=== PATIENT | male | born 1945 | race Caucasian/White ===

== ENCOUNTER → 2016-11-07 | Outpatient (CLI) | payer MEDICARE ==
[~2016-11-07] MED LIST: FURO1TAB60 PO
--- NOTE | 2016-11-08 16:43 | EKG ---
Date Performed: 11/07/2016 Time Performed: 14:47:26 PTAGE: 71 years EKG: Sinus rhythm with PVC(s). Borderline ECG NO PREVIOUS TRACING DOCTOR: Peter Crews Interpretating Date/Time 11/08/2016 16:41:24
== END ==
LOC: HCAV 14:38
DX: I10 Essential (primary) hypertension (principal)
CPT/HCPCS: 93005

== ENCOUNTER 2017-02-18 06:03 | Day surgery (SDC) | payer MEDICARE ==
[~2017-02-18] VITALS: Ht 188 cm; Wt 122.0 kg
[2017-02-18] MEDS ORDERED: FURO1TAB60 PO (07:09)
[2017-02-18 07:10] VITALS: BP 141/81; PULSE 64; RESP 16; O2SAT 97
[2017-02-18 07:24] LABS: AUTOMATED NEUTROPHIL # 3.3 TH/MM3 (1.8-7.7); BASOPHIL % 0.3 % (0.0-2.0); EOSINOPHIL # 0.1 TH/MM3 (0-0.4); EOSINOPHIL % 2.1 % (0.0-4.0); HEMO FLAGS DIFF FINAL; LYMPH % 28.8 % (9.0-44.0); LYMPHOCYTE # 1.6 TH/MM3 (1.0-4.8); MEAN CELL VOLUME 88.1 FL (80.0-100.0); MEAN CORPUSCULAR HEMOGLOBIN 30.5 PG (27.0-34.0); MEAN CORPUSCULAR HGB CONC 34.6 % (32.0-36.0); MONO % 9.3 % (0.0-8.0); NEUT % 59.5 % (16.0-70.0); PLATELET COUNT 265 TH/MM3 (150-450); RED BLOOD COUNT 4.43 MIL/MM3 (4.50-5.90); RED CELL DISTRIBUTION WIDTH 14.1 % (11.6-17.2); WHITE BLOOD COUNT 5.5 TH/MM3 (4.0-11.0)
[2017-02-18 07:31] LABS: APTT (PATIENT) 25.8 SEC (24.3-30.1); PROTHROMBIN TIME - PATIENT 10.9 SEC (9.8-11.6)
[2017-02-18 07:36] LABS: POTASSIUM 3.9 MEQ/L (3.5-5.1)
[2017-02-18] MEDS ORDERED: HEPARIN-NS/PF INJ 500 ML ONE (08:37)
[2017-02-18] MEDS ORDERED: MIDAZOLAM HCL 2 MG/2 ML VIAL ONE ×2 (08:37→08:55)
[2017-02-18] MEDS ORDERED: MISC INFORMATION XX ONE (09:30)
--- NOTE | 2017-02-18 09:38 | CATHPROC ---
[place] HIS Report Study Information Study Number Admission Scheduled Start Study Start [id number] 02/18/2017 02/18/2017 Feb 18 2017 8:43AM Study Type [facility] Left Heart Cath Cardiac Catheterization Referring Institution Admit Source Facility Department 1 Other [facility] - Canvassing Manager Physician and Clinical Staff Initial Wing Bianca Woo Whizzer Hand Padmini Wilks RN Other Boris RN, Raul Recorder Madiha Bedolla,RT(R) Ji Deng RCIS(BS) Procedures Performed Procedure Location (Site) Vessel Name Coronary Angiograms LCA Left Coronary Coronary Angiograms RCA Right Coronary L Heart Cath Wire insertion Fem Art (right) Femoral Art Equipment Time Photoengraving Etcher Apprentice Description Size Mfg Part Number Used/Scraped TRANSDUCER, TRUWAVE 08:56 DE LEON MAI * [id number] Used W/Range Fuels INTRODUCER SET, [id number]- 08:51 Joinity INC. FR 5 Used MICROPUNCTURE, STIFFENED SC-NT-U-SST 09:23 DAI/ST. ANDRES MEDICAL ANGIOSEAL, FR6 VIP FR 6 [id number] Used 08:56 MEDLINE INDUSTRIES PACK, CCL CUSTOM * [id number] Used 08:56 Volusion PACER PEN, SKIN DUAL W/ RULER * [id number] Used 08:56 GodTube MEDICAL WIRE, 3MMJ .035 180CM 180CM [id number] Used 08:56 NAMSignal Data MANIFOLD, 4 PORT * [id number] Used 08:56 NYCOMED OMNIPAQUE, 350 MG, 100ML 100ML [id number] Used 08:56 [employer] MEDICAL BLANKET,WARM AIR CCL * [id number] Used 08:56 TERUMO MEDICAL SHEATH, FR5 TERUMO (10CM) FR 5 [id number] Used 08:51 TERUMO MEDICAL SHEATH, FR5 TERUMO (10CM) FR 5 [id number] Used Equipment Model, Serial, Lot Number and Expiration Data Description Model Number Serial Number Lot Number Expiration Date ANGIOSEAL, FR6 VIP [id number] 10-12-2017 INTRODUCER SET, [id number] 01-04-2020 MICROPUNCTURE, STIFFENED History: Current Medications Medication Dosage/Unit Route Frequency Last Date/Time Taken LASIX K-Dur History: Allergies Allergy Reaction No Known Allergies History: Risk Factors Family History of Hypertension Dyslipidemia Previous [place] Previous Heart Failure Premature CAD Yes No No No No Prior Valve Prior PCI Prior CABG Surgery No No No Cerebrovascular Peripheral Artery Chronic Lung On Dialysis Diabetes Disease Disease Disease No No No No No History: Risk Factors Selection Items Current Smoker History: Symptoms/Diagnosis Selection Items SOB History: Stress Tests Stress or Imaging Studies Performed No History: Other Disease Selection Items HTN History: Other Current Smoker Method Packs a Day Years Used Pack Years Yes Cigarettes 1 6 6 Labs Hgb (g/dl) Hct (%) RBC (MIL/MM3) WBC (l/cumm) Platelets (thousands) 12.00-18.00 37.00-55.00 4.80-6.20 4.80-10.80 140.00-450.00 13.5 39 4.4 5.5 265 Glucose (mg/dl) BUN (mg/dl) Creatinine (mg/dl) BUN:Creatinine (1:x) 60.00-110.00 8.00-20.00 0.10-9.00 10.00-20.00 105 20 1.0 20 Na (meq/l) K (meq/l) Cl (meq/l) CO2 (mmol/L) Ca (mg/dl) 138.00-146.00 3.80-5.10 101.00-111.00 23.00-30.00 9.00-10.50 143 3.9 108 30 8.4 PT (sec) PTT (sec) INR (PTT:PT) 9.40-11.40 25.10-32.70 0.50-2.00 10.9 25.8 1 CPK-MB (ng/ML) 0.00-7.00 Not Drawn Medication Medication Total Dose (Bolus/Oral) Medication Total Dosage/Unit 1% XYLOCAINE 20 mL FENTANYL 50 mcg VERSED 2 mg Medications (Bolus/Oral) Medication Time Given Dosage/Unit Administered By Reason FENTANYL 02/18/2017 8:56:27 AM 50 mcg AcecheBridgetPadmini 50 mcg FENTANYL given in lab by Padmini Wilks, RN via Peripheral IV. VERSED 02/18/2017 8:58:53 AM 2 mg Mrache, Padmini 2 mg VERSED given in lab by Padmini Wilks, RN via Peripheral IV. 1% XYLOCAINE 02/18/2017 9:00:31 AM 20 mL Wing Bianca Ramirez 20 mL 1% XYLOCAINE given in lab by Wing Bianca Ramirez in Right Groin via Subcutaneous. Medication (Drip) Medication Time Given Dosage/Unit Concentration/Unit Diluent (ml) Solution IV Solutions 02/18/2017 8:50:38 AM 0 mL (IV) NaCl .9 Patient arrived on IV Solutions in Left Antecubital via Peripheral IV. Pump/Drip Flow = 20 ml/hr usin g NaCl .9. Initial Case Assessment Cardiovascular HR Rhythm NIBP Chest Pain 62 reg-pvc 159/92 0 Edema Present Skin color Skin None Normal Warm Circulatory - Right Pulses Dorsalis Pedis Femoral d 3 Scale (0,1,2,3,4,d) Circulatory - Left Pulses Dorsalis Pedis Femoral d 3 Scale (0,1,2,3,4,d) Circulatory - Lower Extremities Color Lower Right Color Lower Left Normal Normal Neurological State Oriented to time-place- Alert Moves all extremities person Respiration - General Respiration Rate SpO2 (%) (B/min) 11 99 Chronological Log Time Study Chronological Log 8:43:13 Patient arrived via Bed. 8:43:14 Patient Name, D.O.B, / Armband Verified By R.N. 8:43:15 Consent signed by the physician and the patient and verified by the Canvassing Manager staff. 8:43:16 Pre-op and post- op instructions given; patient acknowledges understanding of instructions. 8:43:17 Verbal Stimulation=2 Physical Stimulation=2 Airway=2 Respiration=2 TOTAL=8. (0=absent, 1=madison ited, 2=present) 8:43:19 Allens test performed on the right radial and ulnar artery. 8:43:20 Patient has been NPO for Less than 6Hrs. 8:43:21 Skin Breakdown-none 8:43:34 Patient Warmer Placed on the Table. Vitals capture started with the following parameters, Patient=Adult, Interval=15 min, Initial Pr kbcfmh=997 mmHg, 8:45:30 Deflation Rate=5 mmHg 8:46:11 HR=61 bpm, ODJK=096/95 mmhg, SpO2=99.0 %, Resp=11 B/min, Pain=0, Isaak=10, Alexis=2 8:49:03 Reference ECG taken 8:50:28 A # 20 IV was noted in the Antecubital (left). Grade = 0 8:50:38 Patient arrived on IV Solutions in Left Antecubital via Peripheral IV. Pump/Drip Flow = 20 m l/hr using NaCl .9. 8:51:11 History and physical on the chart or being dictated. 8:51:12 HR=59 bpm, LQXT=908/92 mmhg, SpO2=99.0 %, Resp=11 B/min, Pain=0, Isaak=10, Alexis=2 Assessment: Initial Case, HR=62 BPM, Rhythm=reg-pvc, YKXV=316/92 mmhg, Chest Pain=0, Edema=None, Color=Normal, Skin = Warm Right Pulses: Ean Ped=d, Femoral=3 Left Pulses: Ean Ped=d, Femoral=3 8:51:16 Lower Right Extremities: Color=Normal Lower Left Extremities: Color=Normal Neurological: State=Alert, Ox3, VELAZQUEZ Respiration: Resp=11 B/min, SpO2=99 % 8:52:04 Bilateral groins prepped with 2% chlorhexidine, and with a 3 min. waiting time. 8:53:56 MD arrived. 8:56:13 HR=63 bpm, SWQO=889/92 mmhg, NeU9=502.0 %, Resp=9 B/min, Pain=0, Isaak=10, Alexis=2 8:56:27 50 mcg FENTANYL given in lab by Padmini Wilks, RN via Peripheral IV. 8:58:53 2 mg VERSED given in lab by Padmini Wilks, MYNOR via Peripheral IV. Time Out. Correct patient, correct procedure,correct physician, ,power injector not loaded with contrast with surgical 9:00:06 team present. Time Out Concurred by MD, individual staff and FAMILY INDEPENDENCE CASE MANAGER in procedure 9:00:23 Case Start 9:00:24 Verbal Stimulation=2 Physical Stimulation=2 Airway=2 Respiration=2 TOTAL=8. (0=absent, 1=madison ited, 2=present) 9:00:31 20 mL 1% XYLOCAINE given in lab by Wing Bianca Ramirez in Right Groin via Subcutaneous. 9:00:59 Access site was Right Femoral Artery.with MP KIT 9:01:06 A wire was inserted via Fem Art (right). 9:01:11 A SHEATH, FR5 TERUMO (10CM) FR 5 was advanced into the Fem Art (right) using the Percutaneou s technique. 9:01:14 HR=64 bpm, DUXD=292/88 mmhg, SpO2=97.0 %, Resp=15 B/min, Pain=0, Isaak=10, Alexis=2 A JL 4.0 INFINITI CATHETER FR 5 was advanced over a wire. OMNIPAQUE, 350 MG, 100ML 100ML was use d for 9:03:17 injections. 9:06:09 Catheter was removed A JL 4.5 INFINITI CATHETER FR 5 was advanced over a wire. OMNIPAQUE, 350 MG, 100ML 100ML was use d for 9:06:12 injections. 9:06:13 HR=59 bpm, ENMD=749/83 mmhg, SpO2=87.0 %, Resp=18 B/min, Pain=0, Isaak=10, Alexis=2 9:08:18 The LCA was injected and visualized at various angles. OMNIPAQUE, 350 MG, 100ML 100ML used. 9:10:14 Pressure channel 1 zeroed. Recorded Pressure: Ao, HR=62, Condition=Condition 1 9:10:27 (Aorta) Ao 132/75/97 9:11:15 HR=57 bpm, BZNJ=219/87 mmhg, SpO2=99.0 %, Resp=16 B/min, Pain=0, Isaak=10, Alexis=2 9:12:13 Catheter was removed 9:16:16 HR=57 bpm, CCFF=667/85 mmhg, SpO2=98.0 %, Resp=13 B/min, Pain=0, Isaak=10, Alexis=2 A 3DRC INFINITI CATHETER FR 5 was advanced over a wire. OMNIPAQUE, 350 MG, 100ML 100ML was used for 9:17:03 injections. 9:17:09 The RCA was injected and visualized at various angles. OMNIPAQUE, 350 MG, 100ML 100ML used . 9:18:15 Catheter was removed A PIGTAIL ANG. INFINITI CATHETER FR 5 was advanced over a wire. OMNIPAQUE, 350 MG, 100ML 100ML was used 9:18:18 for injections. Recorded Pressure: LV, HR=60, Condition=Condition 1 9:19:36 (Left Ventricle) LV 131/10/17 Recorded Pressure: LV, Ao, HR=59, Condition=Condition 1 9:19:53 (Left Ventricle) LV 108/8/48, (Aorta) Ao 130/71/94 9:20:11 Catheter was removed 9:21:17 HR=55 bpm, ZDEC=853/85 mmhg, SpO2=99.0 %, Resp=13 B/min, Pain=0, Isaak=10, Alexis=2 9:21:34 An injection in the Fem Art (right) was made through the SHEATH, FR5 TERUMO (10CM) FR 5. 9:22:39 ANGIOSEAL, FR6 VIP FR 6 placement in the Fem Art (right) 9:22:48 Sterile dressing applied to site 9:22:49 Case End 9:22:51 No case complications noted. 9:22:54 Bedside Report will be given. 9:23:00 Patient moved to stretcher 9:26:53 HR=62 bpm, ZBJQ=759/94 mmhg, SpO2=99.0 %, Resp=11 B/min, Pain=0, Isaak=10, Alexis=2 9:27:51 Contrast Scanned 9:27:55 A Left Heart Cath was performed. 9:27:57 Clinical correlaton risk stratification. 9:31:43 Vitals capture stopped. End Study - Contrast Media Used In Study Contrast Total Opened (mL) Total Used (mL) Total Wasted (mL) Omnipaque 80 80 0 End Study - Maximum Contrast Load Max Contrast Load (mL) 610.0 End Study - Radiation Exposure Fluoro Time (minutes) 4.8 End Study - Sheaths Sheaths Pulled By Sheath Hold Time (min) Wing Bianca Ramirez End Study - Patient Disposition Complications Transferred To No Outpatient Bed
[2017-02-18] MEDS ORDERED: IOHEXOL 350 MG/ML 100 ML BTL (for Cath Lab) OTHER ONE (14:01)
--- NOTE | 2017-02-18 15:48 | EKG ---
Date Performed: 02/18/2017 Time Performed: 07:20:40 PTAGE: 71 years EKG: Sinus rhythm with PVC(s) Leftward axis Compared to prior tracing no significant change Borderline ECG PREVIOUS TRACING : 11/07/2016 14.47 DOCTOR: Vignesh Allen Interpretating Date/Time 02/18/2017 15:45:45
--- NOTE | 2017-02-19 06:26 | MA ---
cc: WING BIANCA BLACKWELL DATE OF STUDY February 18, 2017 CLINICAL INFORMATION A 71-year-old man newly diagnosed with severe cardiomyopathy with LVEF of 30-35%. The patient is here for coronary angiogram to define coronary disease and intervention if indicated. PROCEDURES 1. Left heart catheterization. 2. Left ventriculogram. 3. Selective coronary angiogram. PROCEDURE DETAILS AND FINDINGS The procedure, indication, risks and benefits are all explained to the patient. All his questions were answered and informed consent obtained. Under the standard sterile condition, lidocaine infiltrated to the right groin. The right common femoral artery was cannulized using a 5-Hungarian, 10-cm sheath via modified Seldinger technique. A 5-Hungarian JL-4 catheter was engaged in the left main coronary artery. Angiograms were taken in different projections. A 5-Hungarian, 3DRC diagnostic catheter was engaged to RCA ostium, angiograms taken in different projections. A 5-Hungarian pigtail catheter was advanced into the left ventricle, the left ventriculogram was taking in the REAL projection. The left ventricular pressure was measured, the catheter pulled back to the aorta. FINDINGS 1. The left ventricle is mildly to moderately dilated with severe impairment of systolic function. Estimated LVEF of 25-35%. 2. Widely patent left main. 3. Widely patent left anterior descending artery with two diagonal branches. 4. Widely patent circumflex. 5. Widely patent, dominant RCA. Wing Bianca Blackwell MD YWL/SSB /10:25 PM /6:09 AM
== END 2017-02-18 11:40 | disposition home or self-care (01) ==
LOC: HDOC 06:03 → HDIC 06:04 → HDOC 11:40
PROVIDERS: ATTEND Internal Medicine Cardiovascular Disease
DX: I50.22 Chronic systolic (congestive) heart failure (principal); I51.9 Heart disease, unspecified; I10 Essential (primary) hypertension
CPT/HCPCS: 80048; 85025; 85610; 85730; 93005; 93458; C1769; C1893; G0269; J1644; J2250; J3010; Q9967

== ENCOUNTER 2017-06-30 12:45 | Observation (INO) | payer MEDICARE ==
[2017-06-30] VITALS (9 sets, daily range): BP systolic 136–145; BP diastolic 86–108; PULSE 61–74; RESP 18; TEMP 97.9–98.4; O2SAT 96–98
[~2017-06-30] VITALS: Ht 190.5 cm; Wt 125.0 kg
[2017-06-30] MEDS ORDERED: CHLORHEXIDINE GLUCONATE 2 % 1 PACK (2 CLOTHS) TOPICAL PRN (13:30)
[2017-06-30] MEDS ORDERED: POVIDONE IODINE 5% (ANTISEPSIS KIT) 4 APPLICATIONS EACH NARE PRN (13:30)
[2017-06-30] MEDS ORDERED: SODIUM CHLORID 0.9% 500 ML IV PRN (13:30)
[2017-06-30] MEDS ORDERED: VANCOMYCIN 1000 MG/NS 250 ML IV SCH ×2 (13:30)
[2017-06-30] MEDS ORDERED: NS 1000 ML IV SCH (13:30)
[2017-06-30] MEDS ORDERED: MUPIROCIN 2% OINT 1 APPLIC/GM SYR NASAL SCH (13:30)
[2017-06-30] MEDS ORDERED: POVIDONE IODINE 5% (ANTISEPSIS KIT) 4 APPLICATIONS EACH NARE SCH (13:30)
[2017-06-30] MEDS ORDERED: METOPROLOL TARTRATE 25 MG TAB PO PRN (13:30)
[2017-06-30] MEDS ORDERED: CHLORHEXIDINE GLUCONATE 2 % 1 PACK (2 CLOTHS) TOPICAL SCH (13:30)
[2017-06-30] MEDS ORDERED: LACTATED RINGER'S 1000 ML IV PRN (13:30)
[2017-06-30] MEDS ORDERED: INSULIN HUMAN REGULAR 1,000 UNITS/10 ML VIAL SQ PRN (13:30)
[2017-06-30] MEDS ORDERED: ENAL2.5T PO (13:43)
[2017-06-30 14:03] LABS: AUTOMATED NEUTROPHIL # 3.3 TH/MM3 (1.8-7.7); BASOPHIL % 0.4 % (0.0-2.0); EOSINOPHIL # 0.1 TH/MM3 (0-0.4); HEMATOCRIT 39.8 % (39.0-51.0); HEMO FLAGS DIFF FINAL; LYMPH % 29.1 % (9.0-44.0); LYMPHOCYTE # 1.6 TH/MM3 (1.0-4.8); MEAN CELL VOLUME 89.7 FL (80.0-100.0); MEAN CORPUSCULAR HEMOGLOBIN 30.1 PG (27.0-34.0); MEAN CORPUSCULAR HGB CONC 33.6 % (32.0-36.0); MONO % 8.1 % (0.0-8.0); NEUT % 61.4 % (16.0-70.0); PLATELET COUNT 240 TH/MM3 (150-450); RED BLOOD COUNT 4.43 MIL/MM3 (4.50-5.90); RED CELL DISTRIBUTION WIDTH 13.5 % (11.6-17.2); WHITE BLOOD COUNT 5.4 TH/MM3 (4.0-11.0)
[2017-06-30 14:17] LABS: APTT (PATIENT) 25.2 SEC (24.3-30.1); PROTHROMBIN TIME - PATIENT 10.9 SEC (9.8-11.6)
[2017-06-30 14:19] LABS: BICARBONATE 22.1 MEQ/L (21.0-32.0); POTASSIUM 3.8 MEQ/L (3.5-5.1)
[2017-06-30] MEDS ORDERED: MIDAZOLAM HCL 2 MG/2 ML VIAL ONE (15:37)
[2017-06-30] MEDS ORDERED: VANCOMYCIN 500 MG VIAL ONE (16:13)
[2017-06-30] MEDS ORDERED: LIDOCAINE HCL 2% 50 ML VIAL ONE (16:13)
--- NOTE | 2017-06-30 17:44 | CATHPROC ---
[employer] HIS Report Study Information Study Number Admission Scheduled Start Study Start [id number] Jun 30 2017 12:45PM 06/30/2017 Jun 30 2017 3:32PM [place] [facility] Cardiac Pacer/ICD Admit Source Facility Department Other [facility] - Mixer Blender Physician and Clinical Staff Initial MD Stone, Galindo File Clerk Data Entry Padmini Wilks RN Other Anesthesia, PLANT ENGINEER Recorder Janine Gallego,MARK ANTHONY Elizabethub Deacon RosarioRT(R) Procedures Performed Procedure Lead Insertion Lead Revision Equipment Time Environmental Sampler Description Size Mfg Part Number Used/Scraped DEFIBRILLATOR, IMPERIA 7 VR-T 17:00 BIOTRONIK [id number] Used DX MRI 16:53 BIOTRONIK LEAD, PLEXA PRO-MRI DF 65/15 [id number] Used DERMABOND, ADHESIVE SKIN [id number] 16:35 CORDIS/PACER * Used GLUE MINI *[id number] 16:35 MEDLINE PACER ADHESIVE, MASTISOL 2/3CC 2/3CC 0523-48 Used 16:35 MEDLINE PACER CANELA, LIMB * 2530 *[id number] Used [id number] 16:35 MEDLINE PACER PACK, PACER CUSTOM * Used *[id number] 16:35 MEDLINE PACER PEN, SKIN DUAL W/ RULER * Used *[id number] 16:36 Arara PACER SAFE SHEATH, FR8, 13CM FR 8 [id number] Used 16:27 Needle Sponge Count 10 10 Used 17:25 Needle Sponge Count 10 10 Used 17:25 Needle Sponge Count 2 22 Used 16:27 Needle Sponge Count 2 22 Used 16:24 Needle Sponge Count 3 3 Used 17:25 Needle Sponge Count 3 3 Used [id number] *[id number] SUTURE, 0 ETHIBOND [CT1] (CX21D), 8pk SUTURE, 2-0 VICRYL [CT1] ([id number]) SUTURE, 4-0 MONOCRYL [PS2] (Y496G) [id number] 16:35 [place] MEDICAL BLANKET,WARM AIR CCL * Used *[id number] [facility] PAD, ELECTROSURGICAL 16:35 * [id number] *[id number] Used SURGICAL GROUNDING ORANGE [id number] 16:35 ZOLL MEDICAL AMANDA. ELECTRODE, PRO-PADZ BIPHASIC * Used *[id number] Equipment Model, Serial, Lot Number and Expiration Data Description Model Number Serial Number Lot Number Expiration Date DEFIBRILLATOR, IMPERIA 7 VR-T [id number] 03-12-2018 DX MRI LEAD, MARY BETHA PRO-MRI DF 65/15 [id number] 04-11-2019 History: Allergies Allergy Reaction No Known Allergies Medication Medication Total Dose (Bolus/Oral) Medication Total Dosage/Unit 2% XYLOCAINE 50 mL Medications (Bolus/Oral) Medication Time Given Dosage/Unit Administered By Reason 2% XYLOCAINE 06/30/2017 4:43:22 PM 50 mL Galindo Stone Patient arrived on 50 mL 2% XYLOCAINE given by Galindo Stone in Left shoulder via Subcutaneous. Medication (Drip) Medication Time Given Dosage/Unit Concentration/Unit Diluent (ml) Solution IV Solutions 06/30/2017 4:16:38 PM 50 mL (IV) 500 NaCl .9 Patient arrived on IV Solutions via Peripheral IV. Pump/Drip Flow using NaCl .9. VANCOMYCIN DRIP 06/30/2017 4:10:40 PM 1 g Patient arrived on 1 g VANCOMYCIN DRIP via Peripheral IV. Chronological Log Time Study Chronological Log 15:52:37 Patient arrived via Bed. 15:52:38 Patient Name, D.O.B, / Armband Verified By R.N. 15:52:39 Consent signed by the physician and the patient and verified by the Mixer Blender staff. 15:52:59 2% CHLORHEXIDINE GLUCONATE WASH AND NASAL SWIPE DONE PRIOR TO PROCEDURE. 15:53:00 Anesthesia at bedside. Assumes care of patient. 15:54:16 Pre-op and post- op instructions given; patient acknowledges understanding of instruction s. 15:54:17 Verbal Stimulation=2 Physical Stimulation=2 Airway=2 Respiration=2 TOTAL=8. (0=absent, 1= limited, 2=present) 15:54:19 Patient has been NPO for More than 6Hrs. 15:54:20 Skin Breakdown- none 15:54:22 Patient Warmer Placed on the Table. 15:54:22 Disposable Defibrillator Pads Placed On Patient. 15:54:23 Elvia Prominences Protected 16:00:05 A # 20 IV was noted in the Antecubital (left). Grade = 0 16:10:40 Patient arrived on 1 g VANCOMYCIN DRIP via Peripheral IV. 16:16:38 Patient arrived on IV Solutions via Peripheral IV. Pump/Drip Flow using NaCl .9. 16:18:49 History and physical on the chart or being dictated. 16:19:54 Left Upper Chest Prepped Times Two. First Sponge And Instrument Count Done by Padmini Wilks RN. 16:21:08 Hypo's: 3, Sponges: 10, Bovie/scratch: 2 Sutures: 10, Blades: 2, Instruments: 26, Syveck Patches: ~SYVECK PATCH~ 16:29:37 notified the lab is ready for the case 16:40:47 MD arrived. Time Out. Correct patient, procedure, procedure equipment, site and side verified with physic demian present. Time 16:42:59 concurred by MD, individual staff and PLANT ENGINEER. 16:43:05 Case Start 16:43:22 Patient arrived on 50 mL 2% XYLOCAINE given by Galindo Stone in Left shoulder via Subcutan eous. 16:44:44 Surgical Incision Made. 16:49:44 A pocket was created at the L Upper Chest. 16:51:49 Vascular access was obtained in the Subclav. Vein (Lft. 16:52:02 A SAFE SHEATH, FR8, 13CM FR 8 was advanced into the Subclav. Vein (Lft using the Percutane ous technique. 16:52:41 A LEAD, PLEXA PRO-MRI DF 65/15 was inserted and positioned in the RV. 16:54:33 Lead placement verified under fluoroscopy 16:57:41 The RV lead impedance and threshold being tested. 16:59:01 The RV lead was sutured to the fascia. 17:02:02 Pocket flushed with antibiotic solution 17:05:00 starting to close the surgical pocket 17:11:02 Implant Procedure was performed. 17:11:15 A ICD Implant . (Single) 17:14:43 The RV Lead Was Revised. 17:17:54 The RV lead was sutured to the fascia. 17:20:54 A DEFIBRILLATOR, IMPERIA 7 VR-T DX MRI was connected and placed in the pocket. Second Sponge And Instrument Count Done by Deacon Rosario, RT(R). 17:24:45 Hypo's: 3, Sponges: 10, Bovie/scratch: 2 Sutures: ~SUTURE~, Blades: 2, Instruments: ~INSTRU~, Syveck Patches: ~SYVECK PATCH~ 17:28:12 The pocket was closed. 17:34:38 A two Joul DFT was performed. 17:36:59 The DFT was Success at 30 Joules, 66 Ohms lead impedance and 6 ms charge time. 6.6 s final Sponge And Instrument Count Done by Deacon Rosario RT(R). 17:38:03 Hypo's: 3, Sponges: 10, Bovie/scratch: 2 Sutures: ~SUTURE~, Blades: 2, Instruments: ~INSTRU~, Syveck Patches: ~SYVECK PATCH~ 17:38:49 Case End 17:40:07 Steri-strips and a sterile dressing applied to site. 17:40:42 for medications and vital refer to anesthesia flowsheet 17:42:19 A sling was placed on the affected arm. End Study - Contrast Media Used In Study Contrast Total Opened (mL) Total Used (mL) Total Wasted (mL) Unspecified 0 0 0 End Study - Radiation Exposure Fluoro Time (minutes) 5.7 End Study - Patient Disposition Complications Transferred To Interventional Outcome No Telemetry Bed successful
[2017-06-30] MEDS ORDERED: MAGNESIUM HYDROXIDE SUSP 30 ML CUP PO PRN (18:00)
[2017-06-30] MEDS ORDERED: ACETAMINOPHEN/CODEINE 300 MG/30 MG TAB PO PRN ×2 (18:00)
[2017-06-30] MEDS ORDERED: ALUMINUM/MAGNESIUM/SIMETH 30 ML CUP PO PRN (18:00)
[2017-06-30] MEDS ORDERED: ZOLPIDEM TARTRATE 5 MG TAB PO PRN (18:00)
[2017-06-30] MEDS ORDERED: ONDANSETRON HCL 4 MG/2 ML VIAL IV PUSH PRN (18:00)
[2017-06-30] MEDS ORDERED: SODIUM CHLORIDE 0.9% FLUSH 10 ML FLUSH IV FLUSH PRN (18:00)
--- NOTE | 2017-06-30 19:20 | RADRPT ---
EXAM DATE/TIME: 06/30/2017 18:39 [place] COMPARISON: No previous studies available for comparison. INDICATIONS : Rule out pneumothorax. MEDICAL HISTORY : None. SURGICAL HISTORY : None. ENCOUNTER: Initial ACUITY: 1 day PAIN SCORE: 0/10 LOCATION: Bilateral chest FINDINGS: There is no evidence of pneumothorax. A left subclavian single lead pacemaker has its tip in the rig ht heart. The heart is enlarged. The pulmonary vascular pattern is normal. The lungs are clear. CONCLUSION: 1. No pneumothorax. 2. Cardiomegaly. 3. No acute focal pulmonary infiltrate or pulmonary vascular congestion. Maicol Coates MD on June 30, 2017 at 19:14 Board Certified Radiologist. This report was verified electronically.
[2017-06-30] MEDS ORDERED: SODIUM CHLORIDE 0.9% FLUSH 10 ML FLUSH IV FLUSH SCH (21:00)
[2017-06-30] MEDS: ceFAZolin 2 GM PREMIX 50 ML IV SCH (21:41)
[2017-07-01] VITALS (13 sets, daily range): BP systolic 130–143; BP diastolic 68–92; PULSE 60–80; RESP 18; TEMP 97.6–98; O2SAT 98–99
[2017-07-01] MEDS ORDERED: VANCOMYCIN INJ 1,000 MG in SODIUM CHLOR 0.9% 250 ML INJ 250 ML IV ONE (04:00)
[2017-07-01] MEDS: ceFAZolin 2 GM PREMIX 50 ML IV SCH (04:03)
--- NOTE | 2017-07-01 05:26 | MA ---
cc: LLOYD Sanders. DATE: June 30, 2017 DATE OF [address] Wilfredo Stone REFERRING PHYSICIAN Dr. Ramirez CLINICAL INDICATION The patient is 71-year-old gentleman with cardiomyopathy with duration more than three months by recent echocardiogram. EF around 30-34%. 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 He could not tolerate beta kwame, thus the patient came in for single chamber ICD for primary prevention. DEVICE INFORMATION Biotronik single chamber ICD, reference number 805711, serial number [id number]. RV lead is [id number], serial number is [id number]. Final mode is VVI 40 with no diaphragmatic stimulation maximum output. VT is set at 170-230 with 42 shock after two ATPs, VF setting 214 beats a minute with ATP x 1 during charging with 42 shock max. DFT setting - DFT was induced by T-shock mechanism. VF was adequately detected internally by 32 shock after initial failed 22 shock. The charge of 6.6 seconds, high shock impedance 66 ohms. So far the RV ICD lead sensing is 6.9 mV, impedance is 607 ohms, threshold 0.6 volts at 5.4 milliseconds. High shock impedance 77 ohms. So far it has dipole in the right atrium, so far sensing 3.2 mV. PROCEDURE IN DETAIL As the patient was sedated by anesthesiologist using general anesthesia, the patient was prepped and draped in sterile fashion. The left upper chest was anesthetized. A small incision was made; the pocket was opened. Using a first rib approach we were able to access axillary vein once. Using 8-Portuguese sheaths we placed RV ICD lead in the RV apex with good sensing and capture threshold. We did have to reposition the lead given the sensing went down. The sensing so far sensed 6.9 mV with stability. We decided to leave the lead in place. It also had dipole in the right atrium. So far it has good sensing of the P-waves. We decided to leave the lead in place. The lead was connected to a single chamber ICD and appropriate function device sheaths were verified. Then the pocket was copiously irrigated with antibiotic solution, closed in three absorbable layers and we proceed with DFT. T-shock induced VF. VF was adequately detected and terminated by 30J shock after initial failed 20J shock. The patient tolerated the procedure without any complication. CONCLUSION 1. Successful [place] bi-V ICD implantation left upper chest. 2. Successful Biotronik single chamber ICD implantation left upper chest, successful DFT with termination VF by 30J shock. ESTIMATED BLOOD LOSS About 5 cc. CONTRAST None. Thank you Dr. Ramirez. MD JERILYN Livingston/ASHA /5:53 PM /12:00 PM [id number]
--- NOTE | 2017-07-01 14:12 | EKG ---
Date Performed: 06/30/2017 Time Performed: 13:57:40 PTAGE: 71 years EKG: Sinus rhythm . Leftward axis Inferior/lateral T wave changes are nonspecific Compared to prior tracing no signific ant change Borderline ECG PREVIOUS TRACING : 02/18/2017 07.20 DOCTOR: Jerrell Malave Interpretating Date/Time 07/01/2017 14:09:37
--- NOTE | 2017-07-01 14:12 | EKG ---
Date Performed: 06/30/2017 Time Performed: 19:35:10 PTAGE: 71 years EKG: Sinus rhythm . Consider left atrial abnormality Leftward axis Inferior T wave changes are nonspecific Compared to prior tracing no significant change Borderline ECG PREVIOUS TRACING : 06/30/2017 13.57 DOCTOR: Jerrell Malave Interpretating Date/Time 07/01/2017 14:09:29
== END 2017-07-01 11:45 | disposition home or self-care (01) ==
LOC: HDOC 12:45 → HDIC 12:46 → HDOC 17:59 → HCIS 17:59
PROVIDERS: ADMIT Internal Medicine Cardiovascular Disease; ATTEND Internal Medicine Cardiovascular Disease
DX: I42.0 Dilated cardiomyopathy (principal); I50.22 Chronic systolic (congestive) heart failure; I10 Essential (primary) hypertension; R06.02 Shortness of breath; R60.0 Localized edema
CPT/HCPCS: 00534; 33249; 71010; 80048; 85025; 85610; 85730; 93005; 93641; 96365; C1722; C1777; G0378; J0690; J2250; J3010; J3370; J7050